=== PATIENT | female | born 1985 | race Caucasian/White ===

== ENCOUNTER → 2017-01-22 | Outpatient (REF) | payer OTHER ==
[~2017-01-22] MED LIST: ACET50TA PO; DOCU10CA PO; IBUP80TA PO; LABE20TAB PO; MOM30SS PO; PRENTAB55 PO; RANI15TA PO; SALI0.6523; SING10TA32 PO; TUMS500C PO; TYLE167L PO; ZITHTAB PO; ZYRT10CA PO
== END ==
LOC: M LAB REF 17:06
PROVIDERS: ATTEND Physician Assistant Medical
DX: J02.9 Acute pharyngitis, unspecified (principal)

== ENCOUNTER → 2017-09-03 | Outpatient (CLI) | payer OTHER ==
[2017-09-03 17:23] LABS: BASO % 0.3 % (0.0-1.0); EOS # 0.2 10^3/uL (0.0-0.50); EOS % 1.5 % (0.0-3.0); HEMATOCRIT 40.1 % (36.0-47.0); HEMOGLOBIN 13.8 g/dl (12.0-15.5); IMMATURE GRANULOCYTE % 0.3 % (0-3.0); LYMPH # 2.8 10^3/uL (1.5-4.5); LYMPH % 27.8 % (24.0-44.0); MEAN CORPUSCULAR HEMOGLOBIN 31.2 pg (27.0-33.0); MEAN CORPUSCULAR HGB CONC 34.4 g/dl (32.0-36.5); MEAN CORPUSCULAR VOLUME 90.5 fl (80.0-96.0); MONO # 0.7 10^3/uL (0.0-0.8); MONO % 6.4 % (0.0-5.0); NEUTROPHILS # 6.5 10^3/uL (1.8-7.7); NEUTROPHILS % 63.7 % (36.0-66.0); PLATELET COUNT, AUTOMATED 397 10^3/uL (150-450); RED BLOOD COUNT 4.43 10^6/uL (4.00-5.40); RED CELL DISTRIBUTION WIDTH 12.7 % (11.5-14.5); WHITE BLOOD COUNT 10.2 10^3/uL (4.0-10.0)
[2017-09-03 18:29] LABS: IMMUNOGLOBULIN A 96.4 MG/DL (70-400); IMMUNOGLOBULIN G 801 MG/DL (681-1648)
[2017-09-03 18:30] LABS: IMMUNOGLOBULIN E 11.5 IU/ML (<100)
[2017-09-04 10:44] LABS: RUBELLA IgG QUALITATIVE IMMUNE (IMMUNE)
== END ==
LOC: M SMT 14:46
DX: J30.89 Other allergic rhinitis (principal); D84.9 Immunodeficiency, unspecified
CPT/HCPCS: 82785

== ENCOUNTER → 2017-11-17 | Outpatient (REF) | payer OTHER ==
[2017-11-25 00:07] LABS: STREP PNEUMO TYPE 1 7.8 ug/mL (>1.3); STREP PNEUMO TYPE 12F 4.5 ug/mL (>1.3); STREP PNEUMO TYPE 14 17.2 ug/mL (>1.3); STREP PNEUMO TYPE 18C >25.7 ug/mL (>1.3); STREP PNEUMO TYPE 19A >27.5 ug/mL (>1.3); STREP PNEUMO TYPE 19F 27.7 ug/mL (>1.3); STREP PNEUMO TYPE 23F 14.9 ug/mL (>1.3); STREP PNEUMO TYPE 3 1.3 ug/mL (>1.3); STREP PNEUMO TYPE 4 4.2 ug/mL (>1.3); STREP PNEUMO TYPE 6B 31.6 ug/mL (>1.3); STREP PNEUMO TYPE 7F 11.5 ug/mL (>1.3); STREP PNEUMO TYPE 8 11.9 ug/mL (>1.3); STREP PNEUMO TYPE 9N 16.3 ug/mL (>1.3); STREP PNEUMO TYPE 9V 29.3 ug/mL (>1.3)
== END ==
LOC: M LABDRAWC 11:26
DX: J32.9 Chronic sinusitis, unspecified (principal)
CPT/HCPCS: 86609

== ENCOUNTER → 2018-05-12 | Outpatient (REF) | payer BC, OTHER ==
[~2018-05-12] MED LIST changes: -ACET50TA PO; +MAPA500T2 PO; -SALI0.6523; +SALI0.6528
[2018-05-12 14:17] LABS: INFLUENZA A AMPLIFICATION NEGATIVE (NEGATIVE); INFLUENZA B AMPLIFICATION NEGATIVE (NEGATIVE)
== END ==
LOC: M LAB REF 13:09
PROVIDERS: ATTEND Physician Assistant
DX: J11.1 Influenza due to unidentified influenza virus with other respiratory manifestations (principal)

== ENCOUNTER → 2019-09-13 | Outpatient (CLI) | payer BC, OTHER, MEDICAID | LOC: M LABSMTC 11:58 | PROVIDERS: ATTEND Orthopaedic Surgery Hand Surgery | DX: Z03.818 Encounter for observation for suspected exposure to other biological agents ruled out (principal); Z11.59 Encounter for screening for other viral diseases ==

== ENCOUNTER → 2020-05-01 | Outpatient (REF) | payer OTHER, MEDICAID | LOC: M LAB REF 11:23 | PROVIDERS: ATTEND Physician Assistant Medical | DX: J02.9 Acute pharyngitis, unspecified (principal) ==

== ENCOUNTER → 2023-11-24 | Outpatient (REF) | payer BC, MEDICAID ==
[~2023-11-24] MED LIST changes: +MONT-5 PO; -SING10TA32 PO
[2023-11-24 13:33] LABS: AMORPHOUS SEDIMENT SMALL (NEGATIVE); APPEARANCE, URINE TURBID (CLEAR); BACTERIA, URINE AUTO NEGATIVE (NEGATIVE); BILIRUBIN, URINE AUTO NEGATIVE (NEGATIVE); BLOOD, URINE BLOOD NEGATIVE (NEGATIVE); COLOR, URINE YELLOW (YELLOW); GLUCOSE, URINE (UA) AUTO NEGATIVE (NEGATIVE); KETONE, URINE AUTO NEGATIVE (NEGATIVE); LEUKOCYTE ESTERASE, URINE AUTO NEGATIVE (NEGATIVE); MUCUS, URINE LARGE (NEGATIVE); NITRITE, URINE AUTO NEGATIVE (NEGATIVE); PROTEIN, URINE AUTO NEGATIVE (NEGATIVE); RBC, URINE AUTO 0 /HPF (0-3); SPECIFIC GRAVITY URINE AUTO 1.025 (1.002-1.035); SQUAMOUS EPITHELIAL CELL UR AU 3 /HPF (0-6); UROBILINOGEN, URINE AUTO 0.2 mg/dL (0.0-2.0); WBC, URINE AUTO 0 /HPF (0-3)
[2023-11-24 15:35] LABS: C REACTIVE PROTEIN QUANTITATIV 1.5 MG/DL (<1.0)
[2023-11-24 15:36] LABS: COMPLEMENT C3 174.2 MG/DL (84.0-160.0); COMPLEMENT C4 37.7 MG/DL (12-36)
== END ==
LOC: M SFHCRHEU 08:37
PROVIDERS: ATTEND Internal Medicine Rheumatology
DX: R76.8 Other specified abnormal immunological findings in serum (principal)

== ENCOUNTER → 2025-03-01 | Outpatient (CLI) | payer BC, MEDICAID | LOC: M PLAIMG 08:40 | PROVIDERS: ATTEND Orthopaedic Surgery Hand Surgery | DX: M25.561 Pain in right knee (principal) ==